=== PATIENT | male | born 1985 | race Caucasian/White ===

== ENCOUNTER 2018-10-28 11:07 | Emergency (ER) | payer BC, SELFPAY ==
[~2018-10-28] VITALS: Ht 177.8 cm; Wt 85.0 kg
[2018-10-28 12:27] LABS: BASOPHILS # (AUTO) 0.02 x10^3/uL (0-0.1); BASOPHILS % (AUTO) 0 % (0-1); EOSINOPHILS # (AUTO) 0.07 x10^3/uL (0-0.4); EOSINOPHILS % (AUTO) 1 % (1-7); LYMPHOCYTES # (AUTO) 2.01 x10^3/uL (1-3.4); LYMPHOCYTES % (AUTO) 24 % (22-44); MD NO; MEAN CORPUSCULAR HEMOGLOBIN 30.6 pg (27.5-34.5); MEAN CORPUSCULAR HGB CONC 34.5 g/dL (33.2-36.2); MEAN CORPUSCULAR VOLUME 88.9 fL (81-97); MEAN PLATELET VOLUME 8.2 fL (7.4-10.4); MONOCYTES # (AUTO) 0.55 x10^3/uL (0.2-0.8); MONOCYTES % (AUTO) 7 % (2-9); NEUTROPHILS # (AUTO) 5.73 x10^3/uL (1.8-6.8); NEUTROPHILS % (AUTO) 68 % (42-75); PLATELET COUNT 213 x10^3/uL (130-400); RED CELL DISTRIBUTION WIDTH 12.6 % (9.4-14.8)
[2018-10-28] MEDS ORDERED: FLUO10CA13 PO (12:37)
[2018-10-28 12:38] LABS: ALBUMIN 4.1 g/dL (3.4-5.0); ANION GAP 6 mmol/L (5-15); CALCIUM 8.8 mg/dL (8.5-10.1); CHLORIDE 110 mmol/L (98-107)
[2018-10-28 12:39] LABS: CREATININE 0.86 mg/dL (0.7-1.3); SALICYLATE LEVEL < 1.7 mg/dL (2.8-20.0)
[2018-10-28 12:43] LABS: ACETAMINOPHEN < 2 mcg/mL (10-30)
--- NOTE | 2018-10-28 13:19 | NUR ---
PT STATES HE HAS BEEN UNABLE TO WORK BECAUSE OF SHOULDER AND HIP PAIN AND WITH A RECENT STRAIN IS EVEN FURTHER LIMITED. PT STATES HE FEELS SUICIDAL WITH THE THOUGHT OF SHOOTING HIMSELF WITH A GUN. PT STATES HE DOES HAVE A GUN AT HOME. SITTER OUTSIDE OF ROOM OBSERVING PT. SUPPLIES SECURED IN ROOM WITH DOORS SHUT IN FRONT OF THEM. AT BEDSIDE. AWAITING TELEPSYCH EVAL
[2018-10-28 13:37] LABS: AMPHETAMINE SCREEN, URINE Negative (Negative); BARBITURATE SCREEN, URINE Negative (Negative); BENZODIAZEPINE SCREEN, URINE Negative (Negative); CANNABINOID SCREEN, URINE Positive (Negative); COCAINE SCREEN, URINE Negative (Negative); METHADONE SCREEN, URINE Negative (Negative); OPIATE SCREEN, URINE Negative (Negative)
[2018-10-28] MEDS ORDERED: LORazepam 1MG TABLET PO ONE (14:00)
--- NOTE | 2018-10-28 14:01 | NUR ---
soc called for consult
[2018-10-28] MEDS ORDERED: LORazepam 1MG TABLET ONE (14:22)
--- NOTE | 2018-10-28 14:29 | NUR ---
MEDICATED FOR ANXIETY. QUIET AND COOPERATIVE
--- NOTE | 2018-10-28 16:15 | NUR ---
TELEPSYCH COMPLETED. PT AND HAVE FURTHER QUESTIONS WHEN PRESENTED WITH DISCHARGE. TO SPEAK WITH MD.
[2018-10-28 16:16] VITALS: BP 130/78
== END 2018-10-28 16:38 | disposition home or self-care (01) ==
LOC: ED 12:48
DX: F32.0 Major depressive disorder, single episode, mild (principal)
CPT/HCPCS: 36415; 80048; 80307; 80329; 82040; 85025; 99284; G0480